=== PATIENT | male | born 1995 | race African-American/Black ===

== ENCOUNTER 2022-12-23 19:12 | Emergency (ER) | payer BC ==
[2022-12-23 20:30] LABS: SARS-CoV-2 NAA Rapid Test Not Detected (NotDetected)
== END 2022-12-23 20:56 | disposition home or self-care (01) ==
LOC: CSHERS 19:12
DX: R05.9 Cough, unspecified (principal); F17.210 Nicotine dependence, cigarettes, uncomplicated; Z20.822 Contact with and (suspected) exposure to COVID-19
CPT/HCPCS: 87081; 87430; 99284

== ENCOUNTER 2025-06-03 09:52 | Emergency (ER) | payer OTHER | END 2025-06-03 12:59 | disposition home or self-care (01) | LOC: CSHERS 09:52 | DX: M25.531 Pain in right wrist (principal); F17.210 Nicotine dependence, cigarettes, uncomplicated | CPT/HCPCS: 99283 ==